=== PATIENT | male | born 1995 | race Caucasian/White ===

== ENCOUNTER 2019-11-23 17:03 | Emergency (ER) | payer OTHER, SELFPAY ==
[2019-11-23 17:06] VITALS: BP 144/87; PULSE 71; RESP 19; TEMP 37; O2SAT 99; BMI 30.2
--- NOTE | 2019-11-23 17:22 | CT_ITS ---
PROCEDURE: CT ABDOMEN PELVIS W CON CLINICAL INDICATION: pain Right lower quadrant abdominal pain with nausea COMPARISON: No exams were available for comparison TECHNIQUE: IV Contrast: 75ML OPTIRAY 350 Oral Contrast None Axial images obtained with sagittal and coronal reformats. All CT scans at the facility use one or more dose reduction, viz: automated exposure control, ma/kV adjustment per patient size (including targeted exams where dose is matched to indication, i.e. head), or iterative reconstruction technique. FINDINGS: LOWER THORAX: No acute finding ABDOMEN & PELVIS: The liver, spleen, pancreas, adrenal glands, and kidneys have an unremarkable appearance. No intestinal obstruction or free air. No evidence of appendicitis. No pelvic mass or abnormal fluid collection. No acute bony findings. Multiple unopacified bowel loops in the abdomen or pelvis which could obscure or mimic pathology. If symptoms persist, consider repeat exam with IV and oral contrast. IMPRESSION: No acute finding. Please see above for detail Dictated by: Michael Yousif MD 11/24/2019 06:38 Michael Yousif MD in [place] 11/24/2019 06:38
[2019-11-23 17:26] LABS: Microscopic, Urine URINE MICROSCOPIC (MICROSCOPIC)
[2019-11-23 17:28] LABS: Appearance,Urine CLEAR (Clear); Bilirubin,Urine Negative (Negative); Blood, Urine Negative (Negative); Color,Urine YELLOW (Yellow); Glucose,Urine (UA) Negative (Negative); Ketones,Urine Negative (Negative); Leukocyte Esterase,Urine Negative (Negative); Nitrate,Urine Negative (Negative); Protein,Urine Negative (Negative); Specific Gravity, Urine >= 1.030 (1.005-1.030); Urobilinogen,Urine 0.2 EU/dl (0.2)
[2019-11-23 17:39] LABS: Basophils # 0.1 K/mm3 (0-0.2); Eosinophils # 0.1 K/mm3 (0.0-0.4); Eosinophils % 2.1 % (0.1-12.0); Lymphocytes # 1.7 K/mm3 (0.7-4.5); Lymphocytes % 28.6 % (10-50); Mean Corpuscular HGB Conc 36.2 g/dL (31.8-35.4); Mean Corpuscular Volume 88.5 fl (80-94); Mean Platelet Volume 7.9 fl (7.4-10.4); Monocytes # 0.4 K/mm3 (0.1-1.0); Monocytes % 6.4 % (1.7-9.3); Neutrophils # 3.7 K/mm3 (1.8-7.8); Neutrophils % 61.8 % (37.0-80.0); Platelet Count 269 K/mm3 (142-424); Red Blood Count 5.31 M/mm3 (4.60-6.20); Red Cell Distribution Width 12.9 % (11.5-17.5)
[2019-11-23 17:44] LABS: Chloride 102 mmol/L (98-107); Potassium 4.2 mmoL/L (3.5-5.1); Sodium 141 mmol/L (136-145)
[2019-11-23 17:46] LABS: Blood Urea Nitrogen 12 mg/dl (9-20); Creatinine Clearance Estimated 139 mL/min (50-200); Estimated Glomerular Filt Rate 84 ml/min (>60); GFR (African American) 101 ML/MIN (>60)
[2019-11-23 17:47] LABS: Alanine Aminotransferase 25 U/L (12-78); Albumin Level 4.5 g/dl (3.5-5.0); Albumin/Globulin Ratio 1.6 (1.1-1.8); Alkaline Phosphatase 38 U/L (38-126); Anion Gap 13.2 mEq/L (5-15); Aspartate Amino Transferase 43 U/L (17-59); Bilirubin,Total 0.7 mg/dl (0.2-1.3); Calcium 9.6 mg/dl (8.4-10.2); Carbon Dioxide 30 mmol/L (22.0-30.0); Globulin 2.9 g/dL (1.3-3.2); Glucose 97 mg/dl (74-100); Total Protein,Serum 7.4 g/dl (6.3-8.2)
--- NOTE | 2019-11-23 18:03 | HMH.EDGENADL ---
ED Disposition Clinical Impression: Inguinal hernia Qualifiers: Obstruction and gangrene presence: without obstruction or gangrene Laterality: unilateral Recurrence: not specified as recurrent Qualified Code(s): K40.90 - Unilateral inguinal hernia, without obstruction or gangrene, not specified as recurrent Disposition: Home, Self-Care Condition on Discharge: Good Referrals: PCP,No [Primary Care Provider] - Forms: Work/School Release - Critical Care Critical Care Time: No Attestation: On 11/23/19, the high probability of a clinically significant, sudden or life threatening deterioration of the following system(s) required my full and direct attention, intervention and personal management. The time I documented below is in addition to time spent performing reported procedures but includes the following listed in this critical care notation. Medical Decision Making - Medical Records Medical records reviewed: Yes: I reviewed the patient's medical records. - Sergei Inquiry Pt receiving controlled substance: No Vital Signs: 11/23/19 17:06 11/23/19 19:13 Temperature 98.6 F 98.6 F Temperature Source Oral Oral Pulse Rate 78 Pulse Rate [Left Radial] 71 Respiratory Rate 19 16 Blood Pressure 124/69 Blood Pressure [Right Arm] 144/87 H Blood Pressure Mean [Right Arm] 106 Blood Pressure Source Automatic Cuff Blood Pressure Source [Right Arm] Automatic Cuff Blood Pressure Position Sitting Blood Pressure Position [Right Arm] Sitting 02 Sat by Pulse Oximetry 99 Oxygen Delivery Method Room Air Room Air - Lab Data Lab Results 11/23/19 17:15: Urine Color Yellow, Urine Appearance Clear, Urine pH 6.0, Ur Specific Mccomb >= 1.030, Urine Protein Negative, Urine Glucose (UA) Negative, Urine Ketones Negative, Urine Blood Negative, Urine Nitrate Negative, Urine Bilirubin Negative, Urine Urobilinogen 0.2, Ur Leukocyte Esterase Negative, Urine RBC None, Urine WBC None, Ur Squamous Epith Cells None, Urine Bacteria None 11/23/19 17:30: WBC 6.0, RBC 5.31, Hgb 17.0, Hct 47.0, MCV 88.5, MCH 32.0 H, MCHC 36.2 H, RDW 12.9, Plt Count 269, MPV 7.9, Neut % (Auto) 61.8, Lymph % (Auto) 28.6, Fallon % (Auto) 6.4, Eos % (Auto) 2.1, Baso % (Auto) 1.0, Neut # (Auto) 3.7, Lymph # (Auto) 1.7, Fallon # (Auto) 0.4, Eos # (Auto) 0.1, Baso # (Auto) 0.1 11/23/19 17:30: Sodium 141, Potassium 4.2, Chloride 102, Carbon Dioxide 30, Anion Gap 13.2, BUN 12, Creatinine 1.10, Estimated Creat Clear 139, Estimated GFR 84, Est GFR ( Amer) 101, Glucose 97, Calcium 9.6, Total Bilirubin 0.7, AST 43, ALT 25, Alkaline Phosphatase 38, Total Protein 7.4, Albumin 4.5, Globulin 2.9, Albumin/Globulin Ratio 1.6 Result diagrams: 11/23/19 17:30 11/23/19 17:30 Orders (Tests/Meds): ED MEDICATIONS Discontinued Medications Generic Name Dose Route Start Last Admin Trade Name Freq PRN Reason Stop Dose Admin Ioversol 75 ml 11/23/19 17:55 11/23/19 17:56 Rad-Optiray 350 100ml Vial IV 11/23/19 17:56 75 ml ONCE ONE Administration Protocol Sodium Chloride 10 ml 11/23/19 17:55 11/23/19 17:56 Rad-Saline Flush 10ml Syringe IV 11/23/19 17:56 10 ml ONCE ONE Administration ORDERS Category Date Time Status CT abdomen pelvis w con Stat Cat Scan 11/23/19 17:22 Taken Medical Decision Narrative: The patient is a 24 year old male who presents with RLQ and testicular pain with a concern for hernia. VS stable. Abdomen shows some RLQ tendenress but otherwise benign. Labs were obtained which were unremarkable. CT scan was unremarkable. On re-examination patient does have a large right inguinal hernia which is reducible. No tesitcular pain, swelling, tenderness, no concern for torsion. Patient already has general surgery follow up, counseled on return precautions and patient understands. Will discharge home. General Adult HPI - General Chief complaint: Abdominal Pain Stated complaint: WC [id number] pain in lower stomach,Hernia Time Seen by Pr
[2019-11-23 19:13] VITALS: BP 124/69; PULSE 78; RESP 16; TEMP 37; O2SAT 100
== END 2019-11-23 19:15 | disposition home or self-care (01) ==
PROVIDERS: Emergency Provider Emergency Medicine
DX: K40.90 Unilateral inguinal hernia, without obstruction or gangrene, not specified as recurrent (principal)
CPT/HCPCS: 74177; 80053; 81001; 85025; 99283; Q9967

== ENCOUNTER → 2019-11-29 12:12 | Outpatient (CLI) | payer OTHER, SELFPAY ==
[2019-11-29 12:35] LABS: Basophils # 0.1 K/mm3 (0-0.2); Eosinophils # 0.1 K/mm3 (0.0-0.4); Eosinophils % 1.9 % (0.1-12.0); Hemoglobin 16.9 g/dL (14.1-18.0); Lymphocytes # 1.2 K/mm3 (0.7-4.5); Lymphocytes % 21.9 % (10-50); Mean Corpuscular HGB Conc 33.2 g/dL (31.8-35.4); Mean Corpuscular Hemoglobin 30.1 pg (27.0-31.2); Mean Corpuscular Volume 90.6 fl (80-94); Mean Platelet Volume 7.4 fl (7.4-10.4); Monocytes # 0.3 K/mm3 (0.1-1.0); Monocytes % 4.5 % (1.7-9.3); Neutrophils # 3.9 K/mm3 (1.8-7.8); Neutrophils % 70.6 % (37.0-80.0); Platelet Count 255 K/mm3 (142-424); Red Blood Count 5.63 M/mm3 (4.60-6.20); White Blood Count 5.5 K/mm3 (4.8-10.8)
[2019-11-29 13:33] LABS: Chloride 102 mmol/L (98-107); Coronavirus 19 IgG Antibody Negative (Negative); Coronavirus 19 IgM Antibody Negative (Negative); Potassium 4.3 mmoL/L (3.5-5.1); Sodium 140 mmol/L (136-145)
[2019-11-29 13:36] LABS: Anion Gap 14.3 mEq/L (5-15); Blood Urea Nitrogen 13 mg/dl (9-20); Calcium 9.8 mg/dl (8.4-10.2); Carbon Dioxide 28 mmol/L (22.0-30.0); Estimated Glomerular Filt Rate 84 ml/min (>60); GFR (African American) 101 ML/MIN (>60); Glucose 79 mg/dl (74-100)
== END ==
PROVIDERS: Visit Provider Surgery
DX: Z01.89 Encounter for other specified special examinations (principal); K40.90 Unilateral inguinal hernia, without obstruction or gangrene, not specified as recurrent
CPT/HCPCS: 36415; 80048; 85025; 86328

== ENCOUNTER 2019-12-01 09:20 | Day surgery (SDC) | payer OTHER, SELFPAY ==
[2019-11-29 13:13] VITALS: BMI 30.2
[2019-12-01] VITALS (20 sets, daily range): BP systolic 127–157; BP diastolic 66–90; PULSE 60–109; RESP 12–18; TEMP 36.8–43; O2SAT 94–100
--- NOTE | 2019-12-01 10:29 | HMH.ANESCL ---
[facility] Anesthesia Checklist - Structural Data Admitted From: Home Planned Operative Procedure/s: bilat hernia repair Consent for Planned Operative Procedure(s) Verified: Yes - Additional verifications Anesthesia Reactions: No Hx Blood Transfusions: No Blood Transfusion Reaction: No - Airway Assessment C-Spine Mobility Assessed: Yes TMJ Mobility Assessed: Yes Dentition: Good Dentition - Neurological Assessment Level of Consciousness: Awake, Alert, Appropriate - Anesthesia Plan Anesthesia Risk discussed: Yes Anesthesia Plan: Verified ASA Class: I Anesthesia Type: General [facility] History I have reviewed the patient's past medical history: Yes Medical History: Reports:: Seizures Denies:: Cancer, Diabetes Mellitus Type 1, Diabetes Mellitus Type 2, Internal Pacemaker, MRSA *Have you ever received a pneumonia vaccine?: No *Have you received a flu vaccine this season?: No Other Medical History: Denies: Blood Transfusion Reaction Anesthesia experience/problems:: none Laterality Cases: Bilateral: Myringotomy (Ear Tubes) Other Surgeries: No: Pacemaker Amputation: No Fractures: No - *Social History Last grade of school completed: High school graduate Smoking Status: Never smoker Alcohol Intake: never Substance Use Type: denies use *Occupational Status:: employed Housing: house Household Members: family *Travel in the last 8 weeks: None Family Hx:: No significant family history
--- NOTE | 2019-12-01 12:12 | HMH.OPNOTE ---
Date of procedure: 12/01/19 Pre-op Diagnosis:: Bilateral inguinal hernias, right greater than left Post-op Diagnosis:: Same Procedure performed:: Bilateral laparoscopic inguinal hernia repair (TEPP) with placement of large Bard 3D max light mesh on the left and large Bard 3D max non-light on the right Surgeon:: Riccardo Young MD WASH CREW PERSON:: Carlos Aguila Anesthesia: GETA Estimated blood loss (mL): 15 Clinical Note:: Patient is a pleasant 24-year-old male referred by the emergency department for inguinal hernia. 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 He had noted some diffuse abdominal swelling. He was reportedly evaluated at [facility] and diagnosed with a right inguinal hernia. He had ongoing symptoms and had presented to the emergency department at this institution the following day. Evaluation included a CT scan. Clinically he was diagnosed with an inguinal hernia although CT scan reportedly reveals no abnormality. He has had some ongoing pain. He states that when he stands he has increased swelling in the right groin area and is quite uncomfortable. Patient was seen and examined in the office. He had a palpable reducible tender right inguinal hernia. There was a nontender left inguinal hernia. Options were discussed with the patient and plan was made for attempt at laparoscopic repair given the bilaterality. Operative findings:: He had a moderate indirect hernia with thickened hernia sac on the right. There was a small indirect hernia defect on the left. Operative note:: Patient was taken to the operating room. He was given preoperative intravenous antibiotics. In the operating room he was placed in a supine position. General anesthesia was induced. Meraz catheter was placed. Abdomen and genital region were prepped and draped in the standard surgical fashion. Subumbilical skin incision was made. Dissection was carried down to the anterior rectus fascia which was incised to the right of the linea alba. Preperitoneal space was entered. Dissecting balloon trocar was inserted into the preperitoneal space and the balloon was inflated dissecting out the preperitoneal space. After several minutes this was removed and replaced with the structural balloon trocar. CO2 pneumo preperitoneum was achieved to 15 mmHg. A couple 5 mm trochars were inserted inferior to the umbilicus in the midline. 0 degree 10 mm laparoscope was replaced with a 45 degree 10 mm laparoscope. Attention was first turned to dissection of the right side. Landmarks were identified easily identifying the Matheus's ligament at the pubis. Inferior epigastric vessels were identified as were the iliac vessels and cord structures. Blunt dissection was carried out bluntly dissecting out the preperitoneal space laterally and dissecting free and isolating the cord structures. Ultimately hernia sac was identified and dissected free bluntly from the cord structures. It was somewhat thickened. It was returned to the normal anatomic position. He had a widely patent internal ring. Next attention was turned to dissection on the left side. In similar fashion landmarks were identified. The inferior epigastric vessels, cord structures, iliac vessels, and Matheus's ligament were identified. Dissection was carried out as on the contralateral side dissecting the cord structures free from the surrounding structures. There was a small hernia sac and a defect in the internal ring smaller than on the right. Preperitoneal space was dissected out laterally. Under laparoscopic visualization local anesthetic was infiltrated for bilateral inguinal nerve blocks. A large sized Bard light 3D max mesh dedicated to the left side was inserted into the preperitoneal space and oriented intracorporeally to cover the iliopectineal orifice. In a simil
--- NOTE | 2019-12-01 12:20 | P.PN_ITS ---
[facility] Anesthesia Record Part I Intake, IV Amount: 1,500 Estimated blood loss (mL): 0 Urine output (mL): 250 Blood Pressure: 138/88 SaO2: 96 Pulse Rate: 85 Respiratory Rate: 12 Temperature: 99.4 F Patient is:: Awake, Stable Stable to PACU at:: 12:20
--- NOTE | 2019-12-01 13:12 | SUR.PHASEI ---
1245- pt rates pain 6-8 on 1-10 scale. Dilaudid 0.5mg given at this time. 1250- pt continues to rate pain #6. Pt also c/o nausea. Zofran 4mg given for nausea.
--- NOTE | 2019-12-01 13:42 | P.PN_ITS ---
[facility] Anesthesia Record Part II Discharge Time: 13:00 Destination: Surgical Day Care (OP Surgery) PACU nurse assessment reviewed?: Yes Patient Condition:: Good Anesthesia Complications:: None Swallowing reflex intact?: Yes Cyanosis?: No Blood Pressure: 145/73 Pulse Rate: 71 Temperature: 98.2 F Mental Status: Alert & Oriented Pain level:: 6 Nausea and/or vomitting:: None Intake, IV Amount: 0
--- NOTE | 2019-12-01 14:16 | SUR.PHASEII ---
1349- TC TO DR. KELELR TO UPDATE ON C/O PAIN AT 8 AND NAUSEA. NEW ORDERS FOR NORCO AND ZOFRAN 4MG IV. NORCO GIVEN. 1352- PT BEGINS TO C/O OF ITCHING AND HIVES NOTED TO R SIDE OF NECK AND UPPER BACK. NAUSEA WORSENING AND C/O INCREASING PAIN. 1353- TC TO HANNAH IN PHARMACY TO UPDATE, RECOMMENDS NO ZOFRAN, NORCO OK TO GIVE. RECOMMENDS PROMETHAZINE AND BENEDRYL. TC TO DR KELLER TO UPDATE. NEW ORDERS FOR BENEDRYL 25MG IV AND PROMETHAZINE 12.5MG IV. 1400 BENEDRYL 25 MG IV GIVEN PER D MARISOL SIMMS 1403 PROMETHAZINE 12.5MG DILUTED IN 25 CC NACL PER D MARISOL RN 1405 PT C/O OF THROAT FEELS WEIRD AND PROCEEDED TO DRY HEAVE. PT CALMED AFTER THIS AND FELL ASLEEP. 1423- PT RESTING WITH EYES CLOSED.
--- NOTE | 2019-12-01 14:37 | SUR.PHASEII ---
1437- CARE TRANSFERRED OVER TO Elvis HUFFMAN RN. REPORT GIVEN.
== END 2019-12-01 15:25 | disposition home or self-care (01) ==
LOC: OR 09:22
PROVIDERS: Visit Provider Surgery
PROC: (CPT 49650; principal; 2019-12-01 10:45)
DX: K40.20 Bilateral inguinal hernia, without obstruction or gangrene, not specified as recurrent (principal); Z96.22 Myringotomy tube(s) status; Z91.030 Bee allergy status; R56.9 Unspecified convulsions
CPT/HCPCS: 49650; 96374; C1781; J2405; J2710

== ENCOUNTER → 2020-03-17 11:34 | Outpatient (POV) | payer OTHER, SELFPAY ==
[2020-03-17 12:40] VITALS: BP 157/58; PULSE 62; RESP 18; TEMP 36.8; O2SAT 98; BMI 30.2
--- NOTE | 2020-03-17 13:47 | P.CONS_ITS ---
Assessment and Plan (1) Inguinal neuralgia Status: Acute Category: Medical Code(s): M79.2 - Neuralgia and neuritis, unspecified (2) Testicular pain Status: Acute Category: Medical Code(s): N50.819 - Testicular pain, unspecified - Assessment and plan all Dx Assessment and Plan for all problems:: He may have an aspect of inguinal neuralgia after his hernia surgery. We will start him on gabapentin 300 mg at night as well as diclofenac 75 mg twice a day. We will plan on ilioinguinal/illiohypogastric nerve blocks at his next visit. HPI - Data of Consult Patient: new to practice Consult date: 03/17/20 Requesting Physician: Robert Dominguez MD Primary Care Provider: No PCP - Consult Narrative Reason for consult: Right testicular pain History of present illness: Mr. Thurman is a 24 year old male who is status post hernia surgery he has symptomatic hernia on the right side and an incidental left inguinal hernia. He did undergo laparoscopic repair with placement of mesh on both sides. He has now developed some increasing testicular pain right greater than left. This is been worse since surgery. Patient describes it as a dull aching pain. He may have an aspect of inguinal neuralgia. We will start him on gabapentin 3 mg as well as diclofenac 75 mg twice a day. We will also schedule him for an ilioinguinal/iliohypogastric nerve block. CC: Robert Dominguez MD [facility] History I have reviewed the patient's past medical history: Yes Medical History: Reports:: Seizures Denies:: Cancer, Diabetes Mellitus Type 1, Diabetes Mellitus Type 2, Internal Pacemaker, MRSA *Have you ever received a pneumonia vaccine?: No *Have you received a flu vaccine this season?: No Other Medical History: Denies: Blood Transfusion Reaction Laterality Cases: Bilateral: Myringotomy (Ear Tubes) Other Surgeries: Yes: Hernia Repair (inguinal repair). No: Pacemaker Amputation: No Fractures: No - *Social History Smoking Status: Never smoker Alcohol Intake: never Substance Use Type: denies use *Occupational Status:: employed Housing: house Household Members: family *Travel in the last 8 weeks: None Family Hx:: No significant family history Review of Systems - Review of Systems Review of systems:: pertinent systems reviewed and negative unless documented below - *Genitourinary Reports testicle pain Meds Home Medications Medication Instructions Recorded Confirmed Type Diclofenac Sodium [Diclofenac 75mg 75 mg PO BID #60 tab 03/17/20 Rx Tab] Gabapentin [Neurontin 300mg 300 mg PO HS 30 Days #30 cap 03/17/20 Rx capsule] Ibuprofen [Ibuprofen 200MG Capsule] 200 mg PO NEEDED PRN 03/17/20 03/17/20 History Allergies Allergy/AdvReac Type Severity Reaction Status Date / Time BEE VENOM Allergy Severe S-SWELLS-OR Uncoded 03/10/20 13:56 AL/THROAT Objective Vital signs: Temp Pulse Resp BP Pulse Ox 98.2 F 62 18 157/58 H 98 03/17/20 12:40 03/17/20 12:40 03/17/20 12:40 03/17/20 12:40 03/17/20 12:40
== END ==
PROVIDERS: Visit Provider Anesthesiology
DX: M79.2 Neuralgia and neuritis, unspecified (principal); N50.819 Testicular pain, unspecified
CPT/HCPCS: 99202; G0463

== ENCOUNTER 2020-03-24 11:37 | Day surgery (SDC) | payer OTHER, SELFPAY ==
[2020-03-24 12:09] VITALS: BP 133/76; PULSE 65; RESP 18; TEMP 36.4; BMI 30.2
--- NOTE | 2020-03-24 12:43 | P.PCN_ITS ---
- Procedure Date: 03/24/20 Time: 12:43 Anesthesiologist:: Robert Dominguez MD Complications:: None Pre-procedure Diagnosis:: Bilateral inguinal neuralgia. Ilioinguinal/iliohypogastric neuralgia. Bilateral groin pain. Post-procedure Diagnosis:: Same Indications for Procedure:: This patient is a pleasant 24-year-old white male who is status post bilateral hernia surgery under laparoscopic repair. He has now developed testicular pain on both sides right greater than left. He does have inguinal neuralgia and ilioinguinal neuralgia. We will do bilateral ilioinguinal/illiohypogastric ner ve blocks today to help him with his pain symptoms. Procedure Details:: Bilateral ilioinguinal/iliohypogastric nerve block Informed consent was obtained and the risk and benefits of the procedure was explained to the patient. Patient was taken to the procedure room. Both groins were prepped using ChloraPrep. 25-gauge needle was used and we injected 10 mL bupivacaine 0.25% and Depo-Medrol 40 mg into the area of the ilioinguinal and iliohypogastric nerves on each sides. Patient tolerated procedure well with no complications. We used total of 80 mg for both sides. Plan and Disposition:: We will follow-up with him in 2 weeks. Will reevaluate symptoms at that time.
[2020-03-24 12:50] VITALS: BP 145/80; PULSE 69; RESP 18; O2SAT 96
[2020-03-24 13:07] VITALS: BP 122/74; PULSE 85; RESP 18
[2020-03-24 13:08] VITALS: BP 121/74; PULSE 78; RESP 18; O2SAT 99
== END 2020-03-24 12:50 | disposition home or self-care (01) ==
LOC: SC.PAINP 11:38
PROVIDERS: Visit Provider Anesthesiology
DX: G58.8 Other specified mononeuropathies (principal); R10.31 Right lower quadrant pain; R10.32 Left lower quadrant pain
CPT/HCPCS: 64425; J1030

== ENCOUNTER → 2020-03-27 10:04 | Outpatient (POV) | payer OTHER, SELFPAY ==
[2020-03-27 10:33] VITALS: BP 169/82; PULSE 60; RESP 18; O2SAT 99; BMI 30.2
--- NOTE | 2020-03-27 11:23 | HMH.PAINSOAP ---
[facility] Pain Management SOAP Note Subjective:: Patient is a pleasant 24-year-old white male who presents today for follow-up after ilioinguinal hypogastric block. Patient had bilateral blocks done and his left side has improved significantly he is having some right sided leg pain which increased after the injection. The injection site is not red there is no sign symptoms of infection. Patient still having quite a bit of right groin pain. We discussed switching from gabapentin to Lyrica he is agreeable. ROS General: no recent weight change, no fever, no sleep disturbances Respiratory: no cough, no shortness of air, no recurring pulmonary infections Cardiovascular/Peripheral Vascular: No chest pain, No palpitations, no edema, no shortness of breath. Gastrointestinal: no new onset incontinence, normal bowel movements reported Genitourinary: no new onset incontinence Musculoskeletal: Right-sided groin pain Psychiatric: normal mood/ affect Neurological: [denies new onset weakness in extremities], [denies new onset balance issues] Objective:: Physical Exam General: Alert and oriented x3, no acute distress, pleasant and cooperative, [on room air] Lungs: Resps E/U, Symmetrical chest expansion, Eyes: PERRL Musculoskeletal: Movement of right hip and lumbar spine guarded secondary to pain, deep tendon reflexes normal, strength in upper and lower extremities [5/5], normal gait noted Neurological: speech clear, 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 Patient had repairs and now is having inguinal neuralgia. We will change him to Lyrica 75 mg 1 p.o. 3 times daily. I will follow-up with him in 1 week reassess his symptoms at that time he has been instructed to call the office if he has any issues prior to that. We may need to repeat the nerve block after this. Dr. Dominguez has reviewed this note and agrees with this plan of care. This note was dictated using voice recognition software and may contain errors or omissions [facility] History I have reviewed the patient's past medical history: Yes Medical History: Reports:: Seizures (as a child) Denies:: Cancer, Diabetes Mellitus Type 1, Diabetes Mellitus Type 2, Internal Pacemaker, MRSA *Have you ever received a pneumonia vaccine?: No *Have you received a flu vaccine this season?: No Other Medical History: Denies: Blood Transfusion Reaction Laterality Cases: Bilateral: Myringotomy (Ear Tubes) Other Surgeries: Yes: Hernia Repair (inguinal repair). No: Pacemaker Amputation: No Fractures: No - *Social History Smoking Status: Never smoker Alcohol Intake: never Substance Use Type: denies use *Occupational Status:: other Housing: house Household Members: family *Travel in the last 8 weeks: None Family Hx:: No significant family history
== END ==
PROVIDERS: Visit Provider Clinical Nurse Specialist Family Health
DX: G58.8 Other specified mononeuropathies (principal)
CPT/HCPCS: 99212; G0463

== ENCOUNTER → 2020-04-03 10:24 | Outpatient (POV) | payer OTHER, SELFPAY ==
[2020-04-03 10:46] VITALS: BP 125/74; PULSE 59; RESP 18; TEMP 36.8; O2SAT 99; BMI 30.2
--- NOTE | 2020-04-03 10:46 | P.CONS_ITS ---
[facility] Pain Management SOAP Note Subjective:: Patient is a pleasant 24-year-old white male who presents today for follow-up. Patient had good relief with his ilioinguinal hypogastric block on the left side however he has now developed left-sided radicular pain. It weakness in his left leg at times. Patient is continuing to have testicular pain. Patient's not having any side effects to the Lyrica we will increase it. He rates his pain a 4 out of 10 patient is also still having right-sided inguinal pain. I do believe an MRI of his low back would benefit helping discern pathology of these pains. ROS General: no recent weight change, no fever, no sleep disturbances Respiratory: no cough, no shortness of air, no recurring pulmonary infections Cardiovascular/Peripheral Vascular: No chest pain, No palpitations, no edema, no shortness of breath. Gastrointestinal: no new onset incontinence, normal bowel movements reported Genitourinary: no new onset incontinence Musculoskeletal: Inguinal pain, left leg pain Psychiatric: normal mood/ affect, Neurological: [denies new onset weakness in extremities], [denies new onset balance issues] Objective:: Physical Exam General: Alert and oriented x3, no acute distress, pleasant and cooperative, [on room air] Lungs: Resps E/U, Symmetrical chest expansion, Eyes: PERRL Musculoskeletal: Flexion and extension of lumbar spine somewhat guarded secondary to pain, deep tendon reflexes normal, strength in upper and lower extremities [5/5], antalgic gait noted Neurological: speech clear, roof bolter 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 We will also increase his Lyrica to 150 mg 1 p.o. twice daily. I will follow-up with him after his MRI. Patient's been instructed to call the office if he has any issues prior to his next appointment. Dr. Dominguez has reviewed this note and agrees with this plan of care. This note was dictated using voice recognition software and may contain errors or omissions [facility] History I have reviewed the patient's past medical history: Yes Medical History: Reports:: Seizures (as a child) Denies:: Cancer, Diabetes Mellitus Type 1, Diabetes Mellitus Type 2, Internal Pacemaker, MRSA *Have you ever received a pneumonia vaccine?: No *Have you received a flu vaccine this season?: No Other Medical History: Denies: Blood Transfusion Reaction Laterality Cases: Bilateral: Myringotomy (Ear Tubes) Other Surgeries: Yes: Hernia Repair (inguinal repair). No: Pacemaker Amputation: No Fractures: No - *Social History Smoking Status: Never smoker Alcohol Intake: never Substance Use Type: denies use *Occupational Status:: other Housing: house Household Members: family *Travel in the last 8 weeks: None Family Hx:: No significant family history
== END ==
PROVIDERS: Visit Provider Clinical Nurse Specialist Family Health
DX: G58.8 Other specified mononeuropathies (principal)
CPT/HCPCS: 99212; G0463

== ENCOUNTER → 2020-04-28 13:24 | Outpatient (CLI) | payer OTHER, SELFPAY ==
--- NOTE | 2020-04-28 13:33 | MR_ITS ---
PROCEDURE: MR LUMBAR SPINE WO CON CLINICAL INDICATION: LBP WORKPLACE INJURY Lifting injury with low back pain and left leg numbness COMPARISON: No exams were available for comparison TECHNIQUE: Standard multiplanar multiecho sequences are performed without contrast. 3-D MIP and myelographic images are also rendered and reviewed FINDINGS: There is normal alignment. The spinal cord ends at the L1-L2 level. L1-L2: Mild facet hypertrophic change. L2-L3: Mild facet hypertrophic change with minimal left lateral recess narrowing. L3-L4: Mild degenerative disc disease with mild bulging disc and small central disc protrusion along with facet and ligamentum hypertrophy. The central disc protrusion is slightly eccentric toward the left. There is facet and ligamentum hypertrophy with resultant bilateral lateral recess narrowing and mild bilateral foraminal narrowing. The lateral recess narrowing is slightly eccentric toward the left. The bulging disc and small central disc protrusion abuts the anteromedial aspect of both L4 nerve roots slightly greater on the left. There is borderline canal stenosis at this level. L4-5: Mild degenerative disc disease with mild bulging disc and small central disc protrusion with facet and ligamentum hypertrophy and with resultant canal stenosis. There is mild bilateral lateral recess and foraminal narrowing. L5-S1: Degenerative disc disease. There is bulging disc with a small broad based central disc protrusion along facet and ligamentum hypertrophy with bilateral lateral recess narrowing and [id number] bilateral foraminal narrowing. No extruded herniated disc is evident. No acute fracture or dislocation. IMPRESSION: There is multilevel lumbar spondylosis with bulging and protruding discs along with facet and ligamentum hypertrophy with lateral recess and foraminal narrowing. Please see above for detailed description at each level. No extruded herniated disc or acute fracture. Dictated by: Michael Yousif MD 04/29/2020 10:59 Michael Yousif MD in [place] 04/29/2020 10:59
== END ==
PROVIDERS: Visit Provider Clinical Nurse Specialist Family Health
DX: M54.16 Radiculopathy, lumbar region (principal)
CPT/HCPCS: 72148; 76376

== ENCOUNTER → 2020-05-04 15:01 | Outpatient (POV) | payer OTHER, SELFPAY ==
[2020-05-04 15:28] VITALS: BP 125/74; PULSE 65; RESP 18; O2SAT 98; BMI 30.2
--- NOTE | 2020-05-04 16:17 | [facility].PAINSOAP ---
[facility] Pain Management SOAP Note Subjective:: Patient is a pleasant 24-year-old white male who presents today for follow-up. The patient is being treated for low back pain with left leg pain along with inguinal neuralgia. Patient has had hernia surgery and began to have testicular pain. He was treated with ilioinguinal hypogastric blocks and did get great relief, however, he then began to have low back pain with radiation into his left leg. Patient says that he also has numbness and tingling into his left leg and intermittent numbness and tingling in his right leg. He does report that extension at his waist gets worse causing him to also have numbness and tingling into his leg. Leaning forward also gives him significant pain. He does do a lot of heavy lifting and bending with his job. He says the pain is progressively getting worse. He is tried Lyrica helped with his groin pain. He tried gabapentin in the past with no relief. He says diclofenac did not give him any relief. We did discuss trying an anti-inflammatory of Celebrex to see if this helps with his pain. He has not had any physical therapy. He may benefit from some physical therapy. Review of Systems General: No recent weight changes, no fever, no sleep disturbances Respiratory: No cough, no shortness of air, no recurring pulmonary infections Cardiovascular/peripheral vascular: No chest pain, no palpitations, no edema, no shortness of breath Gastrointestinal: No new onset incontinence, normal bowel movements reported Genitourinary: No new onset incontinence Musculoskeletal: Low back pain radiating into left leg with numbness and tingling, intermittent right leg pain with numbness and tingling intermittently Psychiatric: Normal mood/affect Neurological: [Denies weakness in extremities], [denies balance issues] Objective:: Physical exam General: Alert and oriented x3, no acute distress, pleasant and cooperative, [on room air] Lungs: Respirations even and unlabored, symmetrical chest expansion Eyes: PERRL Musculoskeletal: Flexion and extension of lumbar spine somewhat guarded secondary to pain, deep tendon reflexes normal, strength in upper and lower extremities [5/5], [abnormal gait noted] Neurological: Speech clear, 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 Will order him Celebrex 100 mg 1 tablet p.o. twice daily. I do think the patient would benefit from injective therapy as well. He is having pain with extension and flexion at his waist. We will schedule him for medial branch block/facet joint injections at L3-L4 and L4-L5 bilaterally. He is not on any anticoagulation therapy. We will see him back in the clinic after his injections to reassess his symptoms. He was educated regarding the injections. He does understand these are diagnostic injections. He will need to undergo 2 rounds of medial branch blocks. If he does get at least 60% relief with both rounds, we will then proceed with an RFA bilaterally. He is having pain that is on both sides, however, worse to the left side at this time. We will also schedule him for repeat physical therapy. He has had physical therapy in the past, however, we will schedule him once again. He does continue with a home stretching program. We will also start the patient on Celebrex. He has been advised to try ice and heat therapies as well. He has been instructed to contact clinic if he has any concerns before his next appointment. The patient and I specifically discussed risk factors for COVID19. These risks include, but are not limited to age greater than 60, heart or lung disease, diabetes, immunosuppression, and travel. We also discussed NSAIDs may worsen COVID19 infection or symptoms. Patient should not use NSAIDs to treat COVID19 signs or symptoms.
== END ==
PROVIDERS: Visit Provider Clinical Nurse Specialist Family Health
DX: M51.16 Intervertebral disc disorders with radiculopathy, lumbar region (principal); M54.06 Panniculitis affecting regions of neck and back, lumbar region; M47.896 Other spondylosis, lumbar region
CPT/HCPCS: 99212; G0463